=== PATIENT | male | born 1960 | race Caucasian/White ===

== ENCOUNTER → 2020-09-17 | Outpatient (CLI) | payer BC, OTHER ==
[~2020-09-17] MED LIST: ALLEREST PO; DAYQUIL PO; FIBER-TABS625 MG PO; LEVITRA10 MG PO; MUCINEX TA600 MG/TA1 PO; NYQUIL D COLD295 ML PO; RICOLA1 EAC1 PO
== END ==
LOC: LAB 14:56
PROVIDERS: ATTEND Family Medicine
DX: U07.1 COVID-19 (principal)